=== PATIENT | female | born 1980 | race Caucasian/White ===

== ENCOUNTER 2016-11-19 20:14 | Emergency (ER) | payer MEDICAID ==
[~2016-11-19] VITALS: Ht 160 cm; Wt 119.0 kg
[~2016-11-19 20:14] MED LIST: ACET1TAB40 PO; IBUP-1542 PO
[2016-11-19 20:24] VITALS: Ht 160 cm; Wt 119.0 kg
[2016-11-19] MEDS ORDERED: SOD CHLORIDE 0.9% 1,000 ML IV STA (20:58)
--- NOTE | 2016-11-19 21:20 | ERD ---
ER Documentation Chief Complaint Date/Time DATE: 11/19/16 TIME: 21:17 Chief Complaint VAGINAL BLEEDING X 3 MO. STATES NOT NORMAL PERIOD HPI 36-year-old female presents here in emergency department for complaints of vaginal bleeding for 3 months now, has been having it on and off, soaks 7 pads per day. Patient is complaining of pelvic pain, cramping pain, 4/10 scale, accompanying the vaginal bleeding. Patient denies any flank pain. Patient denies hematuria or dysuria. She also has been having cough for 1 month now, dry cough, does not cough up any phlegm or blood. Patient does not have any fever or chills. Patient denies being . Denies is any shortness of breath, dizziness. ROS All systems reviewed and are negative except as per history of present illness. Medications Home Meds Active Scripts Megestrol Acetate* (Megace*) 40 Mg Tab, 40 MG PO DAILY for 20 Days, TAB Prov:RAH ARANA NP 11/19/16 Docusate Sodium* (Colace*) 100 Mg Capsule, 100 MG PO TID, #30 CAP Prov:RAH ARANA NP 11/19/16 Ferrous Sulfate* (Ferrous Sulfate*) 325 Mg Tabec, 325 MG PO BID, #60 TAB Prov:RAH ARANA NP 11/19/16 Cbqmzhuisnv-H-Euketnpivk Hb* (Guaifenesin* DM Syrup) 120 Ml Syrup, 10 ML PO Q4H Y for COUGH, #120 ML Prov:RAH ARANA NP 11/19/16 Azithromycin* (Zithromax*) 250 Mg Tablet, 250 MG PO .ZPACK DIRECTED, #6 TAB TAKE 500 MG (2 TABS) THE FIRST DAY THEN 250 MG (1 TAB) DAYS 2-5 Prov:RAH ARANA NP 11/19/16 Ibuprofen* (Motrin*) 600 Mg Tab, 600 MG PO Q6, #15 TAB Prov:GLENDY MAHONEY MD 02/15/15 Acetaminophen-Codeine* (Acetaminophen-Cod #3*) 300-30 Mg Tab, 1 TAB PO Q4H Y for PAIN, #10 TAB Prov:GLENDY MAHONEY MD 02/15/15 Allergies Allergies: Coded Allergies: No Known Allergy (Verified , 11/19/16) PMhx/Soc Medical and Surgical Hx: pt denies Medical Hx History of Surgery: Yes (cesarrians X 3) Anesthesia Reaction: No Hx Neurological Disorder: No Hx Respiratory Disorders: No Hx Cardiac Disorders: No Hx Psychiatric Problems: No Hx Miscellaneous Medical Probl: No Hx Alcohol Use: No Hx Substance Use: No Hx Tobacco Use: No Smoking Status: Never smoker FmHx Family History: No coronary disease, No diabetes, No other Physical Exam Vitals Vital Signs Date Time Temp Pulse Resp B/P Pulse Ox O2 Delivery O2 Flow Rate FiO2 11/19/16 23:11 92 20 122/71 98 Room Air 11/19/16 20:24 99.2 113 18 119/69 96 Physical Exam GENERAL: The patient is well developed and noted to be pale, in no apparent distress. CHEST: Clear to auscultation bilaterally. There are no rales, wheezes or rhonchi. HEART: Regular rate and rhythm. No murmurs, clicks, rubs or gallops. No S3 or S4. ABDOMEN: Soft, nontender and nondistended. Good bowel sounds. No rebound or guarding. No gross peritonitis. No gross organomegaly or masses. No Galdamez sign or McBurney point tenderness. BACK: No midline or flank tenderness. EXTREMITIES: Equal pulses bilaterally. There is no peripheral clubbing, cyanosis or edema. No focal swelling or erythema. Full range of motion. Grossly neurovascularly intact. NEURO: Alert and oriented. Cranial nerves 2-12 intact. Motor strength in all 4 extremities with 5/5 strength. Sensation grossly intact. Normal speech and gait. SKIN: There is no apparent rash or petechia. The skin is warm and dry. HEMATOLOGIC AND LYMPHATIC: There is no evidence of excessive bruising or lymphedema. No gross cervical, axillary, or inguinal lymphadenopathy. Result Diagram: 11/19/162122 Results 24 hrs Laboratory Tests Test 11/19/16 21:23 11/19/16 21:52 White Blood Count 11.610^3/ul Red Blood Count 3.6410^6/ul Hemoglobin 7.9g/dl Hematocrit 27.0% Mean Corpuscular Volume 74.2fl Mean Corpuscular Hemoglobin 21.7pg Mean Corpuscular Hemoglobin Concent 29.3g/dl Red Cell Distribution Width 15.9% Platelet Count 58773^3/UL Mean Platelet Volume 9.6fl Neutrophils % 56.9% Lymphocytes % 36.6% Monocytes % 4.7% Eosinophils % 1.2% Basophils % 0.3% Nucleated Red Blood Cells % 0.0/100WBC Neutrophils # 6.610^3/ul Lymphocytes # 4.310^3/ul Monocytes # 0.610^3/ul Eosinophils # 0.110^3/ul Basophils # 0.010^3/ul Nucleated Red Blood Cells # 0.010^3/ul Beta HCG, Quantitative < 2.4mIU/ml Urine Color YELLOW Urine Clarity SLIGHTLY CLOUDY Urine pH 6.0 Urine Specific [place] 1.019 Urine Ketones NEGATIVEmg/dL Urine Nitrite NEGATIVEmg/dL Urine Bilirubin NEGATIVEmg/dL Urine Urobilinogen NEGATIVEmg/dL Urine Leukocyte Esterase NEGATIVELeu/ul Urine Microscopic RBC > 182/HPF Urine Microscopic WBC 0/HPF Urine Hemoglobin 3+mg/dL Urine Glucose NEGATIVEmg/dL Urine Total Protein 1+mg/dl Current Medications Medications (Trade) Dose Ordered Sig/Antony Route PRN Reason Start Time Stop Time Status Last Admin Dose Admin Sodium Chloride 1,000 ml @ 1,000 mls/hr Q1H STAT IV 11/19/16 20:58 11/19/16 21:57 DC 11/19/16 21:21 Ceftriaxone Sodium (Rocephin) 50 ml @ 100 mls/hr ONCE ONCE IVPB 11/20/16 00:00 11/20/16 00:29 Normal saline IV bolus was given here in emergency department for rehydration, patient tolerated IV fluids. IV Rocephin was given to treat for pneumonia, tolerated medication well. PROCEDURE: XR Chest. CLINICAL INDICATION: Cough for 1 month. TECHNIQUE: Single frontal view of the chest. COMPARISON: 10/22/2007 FINDINGS: Left lung base discoid atelectasis. Right lung base dense air space disease and atelectasis. Findings suggest right lung base pneumonia. No signs of pleural fluid or pneumothorax are seen. The osseous structures and soft tissues are unremarkable. IMPRESSION: Right lung base pneumonia, with discoid atelectasis at the left lung base. RPTAT: [facility] Physician Lynda Date Time Electronically viewed and signed by Physician Lynda on 11/19/2016 23:17 RS/ CC: RAH ARANA NP PROCEDURE: Ultrasound of the pelvis. CLINICAL INDICATION: Pain TECHNIQUE: Transabdominal and transvaginal ultrasound of the pelvis was performed to better evaluate the pelvic viscera. COMPARISON: No pertinent prior examinations were submitted for comparison. FINDINGS: LAST MENSTRUAL PERIOD: Unavailable UTERUS: Size: 10.4 x 4.9 x 5.8 cm. The uterine texture is heterogeneous. The endometrium measures 23 mm which is thickened. The endometrium is heterogeneous. There is a subserosal fibroid within the anterior lower uterine segment which measures up to 2 cm. RIGHT OVARY: Size: 5.6 x 4.4 x 5.2 cm. There is a 4.7 cm simple cyst within the right ovary. Normal Doppler flow is noted to the right ovary. LEFT OVARY: The ovary is not visualized. No adnexal masses are seen. CUL-DE-SAC: There is no abnormal free fluid. IMPRESSION: Thickened and heterogeneous endometrium. 2 cm subserosal fibroid. 4.7 cm right ovarian cyst. RPTAT: HIKT .Jack Munguia MD, MD Date Time Electronically viewed and signed by .Jack Munguia MD, on 11/19/2016 23:11 .T/ CC: RAH ARANA NP, Dr, OB doctor valuated patient, did a pelvic exam, reexamined patient, patient's heart rate now lower to 92 bpm, patient is not tachycardic anymore after IV fluids, patient is stable, patient appears well and is hemodynamically stable, hemoglobin and hematocrit is low as per discussion with OB doctor, patient and appropriate at this time, patient does not have any dizziness shortness breath, no symptoms of symptomatic anemia this time. Dr. Caputo recommended to treat patient with Megace 20 days, have patient follow with outpatient OB specialist, possible hysteroscopy and endometrial biopsy, dilatation and curettage recommended for evaluation. Procedures/MDM Medical Decision Making: Patients vaginal bleeding is most likely consistent of dysfunction uterine bleeding most likely from uterine fibroid.. Patient does not show any evidence of hypovolemic shock. Patients hemoglobin and hematocrit is stable. There is low suspicion for ectopic . WAYNE results show an fibroid and and oriented. BetaHCG Quantitative is low negative for . here is no signs of symptoms of dehydration. There is low suspicion for sepsis. Patient appears well and is hemodynamically stable. Patient also has right lung base pneumonia causing cough for 3 weeks, will be treated. No symptoms of sepsis at this time. Patient presents hemodynamically stable. Patient was given IV Rocephin, which she did antibiotics at home. Disposition: Home. Condition: Stable Prescription: Ferrous sulfate, Colace, Megace, Azithromycin, guaifenesin DM Instructions: Patient is advised to do bed rest, avoid heavy lifting, and avoid having sex until cleared by OB doctor. Patient is advised to see OB doctor for possible to hysteroscopy and endometrial biopsy, dilatation and curettage. Patient is advised that is symptoms are worst, severe bleeding, dizziness, severe abdominal pain, fever, worst signs and symptoms to return to the emergency department immediately. Departure Diagnosis: Primary Impression: Vaginal bleeding Additional Impressions: Uterine fibroid Uterine leiomyoma location: submucous Qualified Code: D25.0 - Submucous leiomyoma of uterus Ovarian cyst Laterality: right Qualified Code: N83.201 - Cyst of right ovary Pneumonia Pneumonia type: due to unspecified organism Laterality: right Lung location : lower lobe of lung Qualified Code: J18.1 - Pneumonia of right lower lobe due to infectious organism Condition: Stable Patient Instructions: Dysfunctional Uterine Bleeding, Ovarian Cyst, Pneumonia ( Adult), Uterine Fibroids Additional Instructions: Patient is advised to do bed rest, avoid heavy lifting, and avoid having sex until cleared by OB doctor. Patient is advised to see OB doctor for possible to hysteroscopy and endometrial biopsy, dilatation and curettage. Patient is advised that is symptoms are worst, severe bleeding, dizziness, severe abdominal pain, fever, worst signs and symptoms to return to the emergency department immediately. RAH ARANA NP Nov 19, 2016 21:20
[2016-11-19 22:22] LABS: BASOPHILS % 0.3 % (0.0-2.0); EOSINOPHILS # 0.1 10^3/ul (0.0-0.5); EOSINOPHILS % 1.2 % (0.0-7.0); HEMOGLOBIN 7.9 g/dl (12.0-16.0); LYMPHOCYTES # 4.3 10^3/ul (0.8-2.9); LYMPHOCYTES % 36.6 % (15.0-51.0); MEAN CORPUSCULAR HEMOGLOBIN 21.7 pg (29.0-33.0); MEAN CORPUSCULAR HGB CONC 29.3 g/dl (32.0-37.0); MEAN CORPUSCULAR VOLUME 74.2 fl (82.0-101.0); MEAN PLATELET VOLUME 9.6 fl (7.4-10.4); MONOCYTE # 0.6 10^3/ul (0.3-0.9); MONOCYTES % 4.7 % (0.0-11.0); NEUTROPHIL # 6.6 10^3/ul (1.6-7.5); NEUTROPHILS % 56.9 % (39.0-77.0); PLATELET COUNT 542 10^3/UL (140-415); RED BLOOD COUNT 3.64 10^6/ul (4.20-5.40); RED CELL DISTRIBUTION WIDTH 15.9 % (11.5-14.5); WHITE BLOOD COUNT 11.6 10^3/ul (4.8-10.8)
[2016-11-19 22:23] LABS: ADD SCAN DIFF NO
[2016-11-19 22:40] LABS: ADD UMIC YES; UR ASCORBIC ACID NEGATIVE (NEGATIVE); UR BILIRUBIN (Dip) NEGATIVE (NEGATIVE); UR BLOOD (Dip) 3+ mg/dL (NEGATIVE); UR CLARITY SLIGHTLY CLOUDY (CLEAR); UR COLOR YELLOW (YELLOW); UR GLUCOSE (Dip) NEGATIVE (NEGATIVE); UR KETONES (Dip) NEGATIVE (NEGATIVE); UR LEUKOCYTE ESTERASE (Dip) NEGATIVE Leu/ul (NEGATIVE); UR NITRITE (Dip) NEGATIVE (NEGATIVE); UR RBC > 182 /HPF (0-5); UR SPECIFIC GRAVITY (Dip) 1.019 (1.003-1.030); UR TOTAL PROTEIN (Dip) 1+ mg/dl (NEGATIVE); UR UROBILINOGEN (Dip) NEGATIVE (NEGATIVE)
--- NOTE | 2016-11-19 23:12 | RADRPT ---
PROCEDURE: Ultrasound of the pelvis. CLINICAL INDICATION: Pain TECHNIQUE: Transabdominal and transvaginal ultrasound of the pelvis was performed to better evalua te the pelvic viscera. COMPARISON: No pertinent prior examinations were submitted for comparison. FINDINGS: LAST MENSTRUAL PERIOD: Unavailable UTERUS: Size: 10.4 x 4.9 x 5.8 cm. The uterine texture is heterogeneous. The endometrium measures 23 mm whic h is thickened. The endometrium is heterogeneous. There is a subserosal fibroid within the anterior lower uterine segment which measures up to 2 cm. RIGHT OVARY: Size: 5.6 x 4.4 x 5.2 cm. There is a 4.7 cm simple cyst within the right ovary. Normal Doppler flow is noted to the right ovary. LEFT OVARY: The ovary is not visualized. No adnexal masses are seen. CUL-DE-SAC: There is no abnormal free fluid. IMPRESSION: Thickened and heterogeneous endometrium. 2 cm subserosal fibroid. 4.7 cm right ovarian cyst. RPTAT: HIKT .Jack Munguia MD, Date Time Electronically viewed and signed by .Jack Munguia MD, on 11/19/2016 23:11 .T/
--- NOTE | 2016-11-19 23:17 | RADRPT ---
PROCEDURE: XR Chest. CLINICAL INDICATION: Cough for 1 month. TECHNIQUE: Single frontal view of the chest. COMPARISON: 10/22/2007 FINDINGS: Left lung base discoid atelectasis. Right lung base dense air space disease and atelectasis. Findi ngs suggest right lung base pneumonia. No signs of pleural fluid or pneumothorax are seen. The osseo us structures and soft tissues are unremarkable. IMPRESSION: Right lung base pneumonia, with discoid atelectasis at the left lung base. RPTAT: [facility] Physician Lynda Date Time Electronically viewed and signed by Gloria Moser Physician on 11/19/2016 23:17 RS/
--- NOTE | 2016-11-19 23:26 | QN ---
Documentation Comment [employer] Consult Thank you for consulting with us. patient is seen at the bedside,she is on her mestruation currently not actively bleeding No abdominal pain some suprapubic pain Vs stable PR92 BP 110/60 Gen NAD not pale Abd soft NT ND Genitalia 1cc clot seen in vaginal vault .No active bleeding Hct 27 Ultrasound thick endometerium 4-5 cm simple cyst subserosal fibroid --->Patient is advised to schedule an appointment with Her [employer] physician to have a D&C&Hysteroscopy to R/o Endometrial hyperplasia and cancer --->Megace 40 mg po daily for 20 days --->B- HCG needs to be tested before discharge if +,please let the [employer] team know If increased vaginal bleeding any unusal symptoms she will need to go to hospital immedMASHA Mattson M.D. Nov 19, 2016 23:26
[2016-11-19] MEDS ORDERED: AZIT250T94 PO (23:49)
[2016-11-19] MEDS ORDERED: MEGE40TA PO (23:49)
[2016-11-19] MEDS ORDERED: GUAI120S26 PO (23:49)
[2016-11-19] MEDS ORDERED: DOCU-144 PO (23:49)
[2016-11-19] MEDS ORDERED: FER325 PO (23:49)
[2016-11-20] MEDS ORDERED: CEFTRIAXONE 1 GM/50 ML (PMX) 50 ML IVPB ONE
[2016-11-20 01:06] VITALS: BP 120/59; PULSE 87; RESP 20
== END 2016-11-20 01:08 | disposition home or self-care (01) ==
LOC: FTE 20:14
DX: N93.9 Abnormal uterine and vaginal bleeding, unspecified (principal); D25.0 Submucous leiomyoma of uterus; N83.201 Unspecified ovarian cyst, right side; J18.1 Lobar pneumonia, unspecified organism; R10.2 Pelvic and perineal pain
CPT/HCPCS: 36415; 71010; 76830; 76856; 81001; 84702; 85025; 86850; 86900; 86901; 96374; J0696; J7030; Z7502

== ENCOUNTER 2018-08-04 18:34 | Emergency (ER) | payer MEDICAID ==
[~2018-08-04] VITALS: Ht 154.9 cm; Wt 118.2 kg
[~2018-08-04 18:34] MED LIST changes: +AZIT250T PO; +DOCU-144 PO; +FER325 PO; +GUAI120S26 PO; +MEGE40TA PO
[2018-08-04] MEDS ORDERED: SODIUM CHLORIDE 0.9% 1L IRRIG IRR STA (18:39)
[2018-08-04] MEDS ORDERED: SOD CHLORIDE 0.9% 1,000 ML IV STA (18:39)
[2018-08-04 18:43] VITALS: BP 131/72; PULSE 85; RESP 18; Ht 154.9 cm; Wt 118.2 kg
[2018-08-04] MEDS ORDERED: DIPHTH/TET/ACEL PERTUSS (ADULT) 0.5 ML VIAL IM* ONE (19:00)
--- NOTE | 2018-08-04 21:23 | ERD ---
ER Documentation Chief Complaint Chief Complaint syncope with fall from bed, lac to L forehead from hitting floor HPI Patient is a 37-year-old female with no medical problems who presents with syncope. The patient was brought in by ambulance. The patient sat up in bed and coughed hard and then passed out. She fell forward and hit her head and has a small laceration to the forehead. This happened just prior to arrival. She said that over the past 3 weeks she has had a cough and has not been feeling well. Upon review of old medical records this is the patient's ninth visit to the ER since 2006. She does not currently have a primary doctor. ROS All systems reviewed and are negative except as per history of present illness. Medications Home Meds Active Scripts Megestrol Acetate* (Megace*) 40 Mg Tab, 40 MG PO DAILY for 20 Days, TAB Prov:RAH ARANA NP 11/19/16 Docusate Sodium* (Colace*) 100 Mg Capsule, 100 MG PO TID, #30 CAP Prov:RAH ARANA NP 11/19/16 Ferrous Sulfate* (Ferrous Sulfate*) 325 Mg Tabec, 325 MG PO BID, #60 TAB Prov:RAH ARANA NP 11/19/16 Tdslomlemec-D-Whsekwnsto Hb* (Guaifenesin* DM Syrup) 120 Ml Syrup, 10 ML PO Q4H PRN for COUGH, #120 ML Prov:RAH ARANA NP 11/19/16 Azithromycin* (Zithromax*) 250 Mg Tablet, 250 MG PO .BrainPACK DIRECTED, #6 TAB TAKE 500 MG (2 TABS) THE FIRST DAY THEN 250 MG (1 TAB) DAYS 2-5 Prov:RAH ARANA NP 11/19/16 Ibuprofen* (Motrin*) 600 Mg Tab, 600 MG PO Q6, #15 TAB Prov:GLENDY MAHONEY MD 02/15/15 Acetaminophen-Codeine* (Acetaminophen-Cod #3*) 300-30 Mg Tab, 1 TAB PO Q4H PRN for PAIN, #10 TAB Prov:GLENDY MAHONEY MD 02/15/15 Allergies Allergies: Coded Allergies: No Known Allergy (Verified , 11/19/16) PMhx/Soc History of Surgery: Yes (cesarrians X 3) Anesthesia Reaction: No Hx Neurological Disorder: No Hx Respiratory Disorders: No Hx Cardiac Disorders: No Hx Psychiatric Problems: No Hx Miscellaneous Medical Probl: No Hx Alcohol Use: No Hx Substance Use: No Hx Tobacco Use: No Smoking Status: Never smoker FmHx Family History: diabetes Physical Exam Vitals Vital Signs Date Temp Pulse Resp B/P (MAP) Pulse Ox O2 O2 Flow FiO2 Time Delivery Rate 08/04/18 98.0 85 18 131/72 98 18:43 (91) Physical Exam Const: Moderate distress Head: Atraumatic Eyes: Normal Conjunctiva ENT: Normal External Ears, Nose and Mouth. Neck: Full range of motion. No meningismus. Resp: Clear to auscultation bilaterally Cardio: Regular rate and rhythm, no murmurs Abd: Soft, non tender, non distended. Normal bowel sounds Skin: Pale skin, small wound to the mid forehead Back: No midline or flank tenderness Ext: No cyanosis, or edema Neur: Awake and alert Psych: Normal Mood and Affect Result Diagram: 08/04/18185808/04/181858 Results 24 hrs Laboratory Tests Test 08/04/18 18:59 White Blood Count 12.1 10^3/ul Red Blood Count 4.18 10^6/ul Hemoglobin 10.1 g/dl Hematocrit 33.0 % Mean Corpuscular Volume 78.9 fl Mean Corpuscular Hemoglobin 24.2 pg Mean Corpuscular Hemoglobin Concent 30.6 g/dl Red Cell Distribution Width 16.2 % Platelet Count 401 10^3/UL Mean Platelet Volume 9.3 fl Immature Granulocytes % 0.500 % Neutrophils % 51.3 % Lymphocytes % 40.7 % Monocytes % 4.3 % Eosinophils % 2.9 % Basophils % 0.3 % Nucleated Red Blood Cells % 0.0 /100WBC Immature Granulocytes # 0.060 10^3/ul Neutrophils # 6.2 10^3/ul Lymphocytes # 4.9 10^3/ul Monocytes # 0.5 10^3/ul Eosinophils # 0.4 10^3/ul Basophils # 0.0 10^3/ul Nucleated Red Blood Cells # 0.0 10^3/ul Sodium Level 139 mmol/L Potassium Level 3.7 mmol/L Chloride Level 103 mmol/L Carbon Dioxide Level 29 mmol/L Anion Gap 7 Blood Urea Nitrogen 17 mg/dl Creatinine 0.60 mg/dl Est Glomerular Filtrat Rate mL/min > 60 mL/min Glucose Level 141 mg/dl Calcium Level 9.3 mg/dl Troponin I < 0.012 ng/ml Serum HCG, Qualitative NEGATIVE Current Medications Medications Dose Sig/Antony Start Time Status Last (Trade) Ordered Route PRN Stop Time Admin Dose Reason Admin Sodium 1,000 ml @ Q1H STAT 08/04/18 DC 08/04/18 Chloride 1,000 mls/hr IV 18:39 19:09 08/04/18 19:38 Diphtheria/ 0.5 ml ONCE ONCE 08/04/18 DC 08/04/18 Tetanus/Acell IM* 19:00 19:10 Pertussis 08/04/18 19:01 (Adacel) Sodium 1,000 ml ONCE STAT 08/04/18 DC Chloride IRR 18:39 (NS (Irrig)) 08/04/18 18:40 Procedures/MDM CT head negative per radiology. Chest x-ray read by radiology. Laceration Repair by me: Anesthesia: None required Location: Forehead Tendon/Joint/Nerves: No injury Foreign body: None detected after copious irrigation and exploration Technique: Dermabond Complexity: No subcutaneous sutures/mucosal repair/edge excision Post Closure Length: 1 cm Patient's bleeding was easily controlled in the department and there is no indication of anemia. No evidence of compartment syndrome, neurologic injury, vascular injury, open joint, tendon laceration, or foreign body. Patient is appropriate for outpatient follow up. 48 hour wound check. Scar minimization instructions given. Patient's laboratory studies show mild anemia but the patient does not require transfusion. I doubt serious etiology of her syncope at this time. I believe outpatient management is appropriate. The patient was to follow-up closely with the local clinics within 24-48 hours. She can return sooner for any worsening symptoms. Departure Diagnosis: Primary Impression: Syncope Syncope type: unspecified Qualified Codes: R55 - Syncope and collapse Additional Impression: Laceration Condition: Fair Patient Instructions: Laceration, Face (Skin Glue), Syncope, Unk Cause Referrals: COMMUNITY CLINICS YOU HAVE RECEIVED A MEDICAL SCREENING EXAM AND THE RESULTS INDICATE THAT YOU DO NOT HAVE A CONDITION THAT REQUIRES URGENT TREATMENT IN THE EMERGENCY DEPARTMENT. FURTHER EVALUATION AND TREATMENT OF YOUR CONDITION CAN WAIT UNTIL YOU ARE SEEN IN YOUR DOCTORS OFFICE WITHIN THE NEXT 1-2 DAYS. IT IS YOUR RESPONSIBILITY TO MAKE AN APPOINTMENT FOR FOLOW-UP CARE. IF YOU HAVE A PRIMARY DOCTOR --you should call your primary doctor and schedule an appointment IF YOU DO NOT HAVE A PRIMARY DOCTOR YOU CAN CALL OUR PHYSICIAN REFERRAL HOTLINE AT IF YOU CAN NOT AFFORD TO SEE A PHYSICIAN YOU CAN CHOSE FROM THE FOLLOWING [facility] [address] [facility] [address] [address] [facility] [facility] [address] [facility] [address] [facility]. [facility] [address] [facility]. [address] Additional Instructions: Call your primary care doctor TOMORROW for an appointment during the next 1-2 days.See the doctor sooner or return here if your condition worsens before your appointment time. MAYA JOHNSON MD Aug 04, 2018 21:23
== END 2018-08-04 21:36 | disposition home or self-care (01) ==
LOC: E/R 18:34
DX: S01.81XA Laceration without foreign body of other part of head, initial encounter (principal); W06.XXXA Fall from bed, initial encounter; Y92.9 Unspecified place or not applicable; Z23 Encounter for immunization
CPT/HCPCS: 12011; 70450; 71045; 80048; 84484; 84703; 85025; 90715; 93005; A4217; J7030; 36415; 90471